=== PATIENT | male | born 1960 | race Caucasian/White ===

== ENCOUNTER 2021-08-20 19:09 | Inpatient (IN) | payer OTHER ==
[~2021-08-20] VITALS: Ht 177.8 cm; Wt 95.7 kg
[2021-08-20] MEDS ORDERED: ALBUTEROL INHALER 1 PUFF/90 MCG INHALER IH PRN ×2 (19:15→21:40)
[2021-08-20] MEDS ORDERED: normal saline 1000ML IV soln IVB ONE (19:15)
[2021-08-20] MEDS ORDERED: dexamethasone inj 8 MG in normal saline 50ml IV soln 50 ML IV ONE (19:15)
--- NOTE | 2021-08-20 19:27 | NUR ---
Pt placed in room. O2 INITIATED 3L NC. OXYGEN SATURATION AT 93%.
[2021-08-20 19:45] LABS: LYMPHOCYTES # (AUTO) 0.5 X10'3 (1.1-4.8); MONOCYTES # (AUTO) 0.4 X10'3 (0-0.9); MONOCYTES % (AUTO) 4.6 % (2-12)
[2021-08-20 19:46] LABS: BASOPHILS # (AUTO) 0.1 X10'3 (0-0.2); BASOPHILS % (AUTO) 0.6 % (0-1); EOSINOPHILS % (AUTO) 0.1 % (0-6); HEMATOCRIT 52.7 % (42.0-52.0); LYMPHOCYTES % (AUTO) 5.6 % (21-51); MEAN CORPUSCULAR HEMOGLOBIN 28.1 PG (27.0-31.0); MEAN CORPUSCULAR HGB CONC 34.3 g/dL (33.0-36.5); MEAN CORPUSCULAR VOLUME 81.8 FL (78-98); MEAN PLATELET VOLUME 8.7 FL (7.4-10.4); NEUTROPHILS # (AUTO) 7.8 X10'3 (1.8-7.7); NEUTROPHILS % (AUTO) 89.1 % (42-75); PLATELET COUNT 194 X10'3 (140-440); RED BLOOD COUNT 6.44 X10'6 (4.70-6.10); RED CELL DISTRIBUTION WIDTH 16.2 % (11.5-14.5); WHITE BLOOD COUNT 8.7 X10'3 (4.5-11.0)
[2021-08-20 19:55] LABS: D-DIMER 0.41 MG/L FEU (0-0.50)
[2021-08-20 19:58] LABS: ABG HCO3 19.1 mmol/L (22.0-26.0); ABG OXYGEN SATURATION 93.4 % (94-97); ABG PCO2 (T) 26.6 mmHg (35.0-48.0); ABG PO2 (T) 64.7 mmHg (75.0-100.0); FCOHb 0.3 % (0.0-3.9); FLOW 4 L/min; FMetHb 0.4 % (0.0-1.5); FO2Hb 92.7 % (94-97); PATIENT TEMPERATURE 37.4; TOTAL HEMOGLOBIN 18.9 G/dl (14.0-18.0)
[2021-08-20 19:59] LABS: ALANINE AMINOTRANSFERASE 41 U/L (12-78); ALBUMIN 2.5 G/DL (3.4-5.0); ALBUMIN/GLOBULIN RATIO 0.6 (1.1-1.5); ALKALINE PHOSPHATASE 55 IU/L (46-116); ANION GAP 10 (8-16); ASPARTATE AMINO TRANSFERASE 64 U/L (10-37); BILIRUBIN,TOTAL 0.6 MG/DL (0.1-1.0); BLOOD UREA NITROGEN 19 MG/DL (7-18); BUN/CREATININE RATIO 11.7 (5.4-32.0); CHLORIDE 93 MMOL/L (99-107); CREATININE 1.62 MG/DL (0.60-1.10); GLUCOSE 95 MG/DL (70-104); POTASSIUM 4.9 MMOL/L (3.5-5.1); SODIUM 127 MMOL/L (135-145); TOTAL CARBON DIOXIDE 24.2 MMOL/L (24-32); TOTAL PROTEIN 6.9 G/DL (6.4-8.2); eGFR 44 ML/MIN
[2021-08-20] MEDS ORDERED: azithromycin/NS 500mg/250ml 250 ML IV ONE (20:00)
[2021-08-20] MEDS ORDERED: REMDESIVIR INJ 200 MG in normal saline 100ml IV soln 60 ML IV ONE (20:00)
[2021-08-20] MEDS ORDERED: CefTRIAXone 2gm/D5W 50ml BAG 50 ML IV ONE (20:00)
[2021-08-20 20:13] LABS: C-REACTIVE PROTEIN 15.49 MG/DL (0.0-0.5); TROPONIN I 0.06 NG/ML (0.0-0.05)
[2021-08-20 20:18] LABS: HEMOGLOBIN 18.1 g/dl (14.0-17.9)
--- NOTE | 2021-08-20 20:18 | NUR ---
aware of pt's hemoglobin critical value
[2021-08-20] MEDS ORDERED: iohexol 350MG/ML 100ml bottle IV ONE (20:55)
[2021-08-20] MEDS ORDERED: temazepam 15mg capsule PO PRN (21:00)
--- NOTE | 2021-08-20 21:08 | NUR ---
PT TO CT
[2021-08-20] MEDS ORDERED: enoxaparin 40mg/0.4ml syringe SUBCUT SCH (21:40)
[2021-08-20] MEDS ORDERED: ondansetron/PF 4mg/2ml inj IV PRN (21:40)
[2021-08-20] MEDS ORDERED: metoclopramide 5 mg/ml inj IV PRN (21:40)
[2021-08-20] MEDS ORDERED: potassium Cl 40MEQ/1/2NS 520ml 520 ML IV PRN ×2 (21:40)
[2021-08-20] MEDS ORDERED: acetaminophen 325mg tablet PO PRN (21:40)
[2021-08-20] MEDS ORDERED: morphine 2 MG/ML inj. syringe IV PRN ×2 (21:40)
[2021-08-20] MEDS ORDERED: potassium Cl 20 mEq SR tablet PO PRN ×2 (21:40)
[2021-08-20] MEDS ORDERED: magnesium hydroxide 30ml (MOM) UD suspension PO PRN (21:40)
[2021-08-20] MEDS ORDERED: HYDROcodone/acetaminophen 10/325mg tab PO PRN (21:40)
[2021-08-20] MEDS ORDERED: magnesium 2GM in 50ml NS 50 ML IV PRN (21:40)
[2021-08-20] MEDS ORDERED: mag hydrox/Alum hydrox/simeth 30ml oral suspension PO PRN (21:40)
[2021-08-20] MEDS ORDERED: magnesium Cl slow-release 64mg tablet PO PRN (21:40)
[2021-08-20] MEDS ORDERED: HYDROcodone/acetaminophen 5mg/325mg tablet PO PRN (21:40)
[2021-08-20] MEDS ORDERED: magnesium 4gm in 100ml NS 100 ML IV PRN (21:40)
[2021-08-20] MEDS ORDERED: bisacodyl 10mg suppository rectal RC PRN (21:40)
[2021-08-20 22:09] LABS: PARTIAL THROMBOPLASTIN TIME 42 SECONDS (22-32)
[2021-08-20] MEDS: normal saline 1000ml 1,000 ML IV SCH (22:13)
--- NOTE | 2021-08-20 22:40 | NUR ---
SPOKE TO PHARMACY OVER REMDESIVIR. IV PREP AREA IS BEING CLEANED AND THEN THEY MAY PREPARE MED. THEY ARE AWARE PT IS BEING TRANSFERRED FROM ED TO FLOOR.
--- NOTE | 2021-08-20 22:44 | NUR ---
CALLED TO GIVE REPORT. FLOOR NURSE ON BREAK AND CHARGE IS BUSY WITH ANOTHER PT.
--- NOTE | 2021-08-20 23:12 | NUR ---
PT WAS DIAPHORETIC WHEN I ENTERED ROOM. HE HAD ACCIDENTALLY TAKEN HIS NC OFF. HE ALSO HAD A BOWEL MOVEMENT ON THE BED. WHEN HE TURNED AROUND HE ACCIDENTALLY RIPPED OFF HIS IV WELL. NC WAS PLACED BACK AND PT'S GENERAL APPEARANCE IMPROVED. HE IS STILL TACHYPNEIC. HIS BEDDING HAS BEEN CHANGED AND PT CLEANED UP. NEW IV LINE HAS BEEN PLACED. SPOKE TO HOSPITALIST OVER THE PHONE CONCERNING PT'S CT RESULTS.
[2021-08-20] MEDS ORDERED: heparin 10,000 units/1 ML INJ IV PRN (23:20)
[2021-08-20] MEDS ORDERED: heparin 10,000 units/1 ML INJ IV ONE (23:20)
[2021-08-21 02:00] VITALS: BP 122/84
[2021-08-21] MEDS: heparin 25,000 UNIT/250ml bag 250 ML IV SCH ×2 (02:00→13:35)
[2021-08-21] MEDS ORDERED: NO HOME MEDS (03:53)
[2021-08-21 06:00] VITALS: BP 142/80
--- NOTE | 2021-08-21 06:15 | NUR ---
Patient in room ORTHO 4012. I have received report from Maru CADENA and had the opportunity to ask questions and assume patient care.
[2021-08-21] MEDS: K and/or MAG REPLACEMENT MC SCH ×2 (08:00→19:21)
[2021-08-21] MEDS: dexamethasone inj 6 MG in normal saline 50ml IV soln 50 ML IV SCH ×2 (08:30→20:24)
[2021-08-21] MEDS: docusate sod 100mg capsule PO SCH ×2 (08:30→20:24)
[2021-08-21] MEDS: acetaminophen 325mg tablet PO PRN (08:30)
[2021-08-21] MEDS: normal saline 1000ml 1,000 ML IV SCH ×2 (08:30→16:00)
[2021-08-21] MEDS: famotidine 20mg tablet PO SCH ×2 (08:30→20:24)
[2021-08-21 08:44] LABS: EOSINOPHILS % (AUTO) 0 % (0-6); LYMPHOCYTES # (AUTO) 0.4 X10'3 (1.1-4.8); MONOCYTES # (AUTO) 0.5 X10'3 (0-0.9)
[2021-08-21 08:46] LABS: BASOPHILS % (AUTO) 0.4 % (0-1); HEMATOCRIT 54.8 % (42.0-52.0); LYMPHOCYTES % (AUTO) 6.2 % (21-51); MEAN CORPUSCULAR HEMOGLOBIN 27.3 PG (27.0-31.0); MEAN CORPUSCULAR VOLUME 82.9 FL (78-98); MEAN PLATELET VOLUME 9.2 FL (7.4-10.4); MONOCYTES % (AUTO) 7.8 % (2-12); NEUTROPHILS # (AUTO) 5.3 X10'3 (1.8-7.7); NEUTROPHILS % (AUTO) 85.6 % (42-75); PLATELET COUNT 205 X10'3 (140-440); RED CELL DISTRIBUTION WIDTH 16.5 % (11.5-14.5); WHITE BLOOD COUNT 6.2 X10'3 (4.5-11.0)
[2021-08-21 09:19] LABS: ALANINE AMINOTRANSFERASE 38 U/L (12-78); ALBUMIN 2.1 G/DL (3.4-5.0); ALBUMIN/GLOBULIN RATIO 0.5 (1.1-1.5); ALKALINE PHOSPHATASE 54 IU/L (46-116); ANION GAP 10 (8-16); ASPARTATE AMINO TRANSFERASE 57 U/L (10-37); BILIRUBIN,TOTAL 0.4 MG/DL (0.1-1.0); BLOOD UREA NITROGEN 20 MG/DL (7-18); BUN/CREATININE RATIO 13.8 (5.4-32.0); CALCIUM 7.6 MG/DL (8.5-10.1); CHLORIDE 100 MMOL/L (99-107); CREATININE 1.45 MG/DL (0.60-1.10); GLUCOSE 130 MG/DL (70-104); LACTATE DEHYDROGENASE 582 U/L (85-227); MAGNESIUM 2.6 MG/DL (1.5-2.4); PHOSPHORUS 3.4 MG/DL (2.3-4.5); POTASSIUM 4.5 MMOL/L (3.5-5.1); SODIUM 135 MMOL/L (135-145); TOTAL CARBON DIOXIDE 24.7 MMOL/L (24-32); TOTAL PROTEIN 6.5 G/DL (6.4-8.2); eGFR 50 ML/MIN
[2021-08-21 09:30] LABS: D-DIMER 0.27 MG/L FEU (0-0.50)
[2021-08-21 10:00] VITALS: BP 116/75
--- NOTE | 2021-08-21 10:00 | NUR ---
Paged Dr. Verde PAGER ID: [phone] MESSAGE: Ortho Neuro rm [id number] Rubin Morales critical lab HGB 18.0, Meg CADENA [id number]
--- NOTE | 2021-08-21 10:22 | NUR ---
paged Ammon PAGER ID: [phone] MESSAGE: Ortho Neuro rm [id number] Rubin Morales critical lab PTT 124, Held heparin per protocol and will redraw in 2 hours, Meg CADENA [phone]
[2021-08-21 11:03] LABS: ANISOCYTOSIS 1+; LARGE PLATELETS FEW; PLATELET ESTIMATE NORMAL
[2021-08-21 14:00] VITALS: BP_SYST 115; BP_SYST 116; BP_DIAS 75; BP_DIAS 77
--- NOTE | 2021-08-21 14:30 | NUR ---
patient sat up in chair for lunch for 2 hours, now positioned in bed in prone position to increase pulmonary toileting. Patient comfortable and O2 saturation 95 % on 6L nasal cannula in prone position.
--- NOTE | 2021-08-21 18:07 | NUR ---
Problems reprioritized. Patient report given, questions answered & plan of care reviewed with Maru CADENA.
[2021-08-21] MEDS: CefTRIAXone/D5W-Rocephin 1gm 50 ML IV SCH (20:31)
[2021-08-21] MEDS: REMDESIVIR INJ 100 MG in normal saline 100ml IV soln 80 ML IV SCH (22:09)
[2021-08-21 23:00] VITALS: BP 123/87
[2021-08-22 02:00] VITALS: BP 98/73
[2021-08-22 04:09] LABS: BASOPHILS # (AUTO) 0.2 X10'3 (0-0.2); BASOPHILS % (AUTO) 1.5 % (0-1); EOSINOPHILS % (AUTO) 0 % (0-6); HEMATOCRIT 56.6 % (42.0-52.0); LYMPHOCYTES # (AUTO) 0.7 X10'3 (1.1-4.8); LYMPHOCYTES % (AUTO) 5.6 % (21-51); MEAN CORPUSCULAR HEMOGLOBIN 27.4 PG (27.0-31.0); MEAN CORPUSCULAR HGB CONC 32.8 g/dL (33.0-36.5); MEAN CORPUSCULAR VOLUME 83.7 FL (78-98); MEAN PLATELET VOLUME 9.2 FL (7.4-10.4); MONOCYTES # (AUTO) 0.6 X10'3 (0-0.9); MONOCYTES % (AUTO) 5.1 % (2-12); NEUTROPHILS # (AUTO) 10.5 X10'3 (1.8-7.7); NEUTROPHILS % (AUTO) 87.8 % (42-75); PLATELET COUNT 237 X10'3 (140-440); RED BLOOD COUNT 6.76 X10'6 (4.70-6.10); RED CELL DISTRIBUTION WIDTH 16.7 % (11.5-14.5); WHITE BLOOD COUNT 11.9 X10'3 (4.5-11.0)
[2021-08-22 04:19] LABS: HEMOGLOBIN 18.5 g/dl (14.0-17.9)
[2021-08-22 04:22] LABS: D-DIMER 0.22 MG/L FEU (0-0.50)
[2021-08-22 04:27] LABS: ALANINE AMINOTRANSFERASE 34 U/L (12-78); ALBUMIN 2.1 G/DL (3.4-5.0); ALBUMIN/GLOBULIN RATIO 0.5 (1.1-1.5); ALKALINE PHOSPHATASE 56 IU/L (46-116); ANION GAP 9 (8-16); ASPARTATE AMINO TRANSFERASE 48 U/L (10-37); BILIRUBIN,TOTAL 0.4 MG/DL (0.1-1.0); BLOOD UREA NITROGEN 23 MG/DL (7-18); BUN/CREATININE RATIO 16.5 (5.4-32.0); C-REACTIVE PROTEIN 10.02 MG/DL (0.0-0.5); CALCIUM 7.7 MG/DL (8.5-10.1); CHLORIDE 103 MMOL/L (99-107); CREATININE 1.39 MG/DL (0.60-1.10); GLUCOSE 159 MG/DL (70-104); LACTATE DEHYDROGENASE 624 U/L (85-227); MAGNESIUM 2.7 MG/DL (1.5-2.4); PHOSPHORUS 2.5 MG/DL (2.3-4.5); POTASSIUM 4.3 MMOL/L (3.5-5.1); SODIUM 137 MMOL/L (135-145); TOTAL CARBON DIOXIDE 24.6 MMOL/L (24-32); TOTAL PROTEIN 6.5 G/DL (6.4-8.2); eGFR 52 ML/MIN
--- NOTE | 2021-08-22 06:30 | NUR ---
Problems reprioritized. Patient report given, questions answered & plan of care reviewed with Yuni CADENA .
[2021-08-22] MEDS: dexamethasone inj 6 MG in normal saline 50ml IV soln 50 ML IV SCH ×2 (08:00→20:17)
[2021-08-22] MEDS: docusate sod 100mg capsule PO SCH ×2 (08:00→20:00)
[2021-08-22] MEDS: K and/or MAG REPLACEMENT MC SCH ×2 (08:00→20:00)
[2021-08-22] MEDS: famotidine 20mg tablet PO SCH ×2 (08:00→21:07)
[2021-08-22] MEDS: heparin 25,000 UNIT/250ml bag 250 ML IV SCH ×2 (08:00→21:17)
[2021-08-22 10:00] VITALS: BP 111/77
[2021-08-22] MEDS: normal saline 1000ml 1,000 ML IV SCH (12:39)
[2021-08-22 18:00] VITALS: BP 130/59
--- NOTE | 2021-08-22 18:00 | NUR ---
Patient still on the same heparin drip hanged in AM, no changes made to dose. patient within therapeutic range
[2021-08-22] MEDS: azithromycin/NS 500mg/250ml 250 ML IV SCH ×2 (21:00→22:19)
[2021-08-22] MEDS: CefTRIAXone/D5W-Rocephin 1gm 50 ML IV SCH (21:07)
[2021-08-22] MEDS: lactobacillus rhamnosus 10,000 MMU CELLS/CAPSULE PO SCH (21:09)
[2021-08-22] MEDS: acetaminophen 325mg tablet PO PRN (21:18)
[2021-08-22 22:00] VITALS: BP 104/66
--- NOTE | 2021-08-22 22:45 | NUR ---
PTT therapeutic no change in heparin dosage.
[2021-08-23] MEDS: REMDESIVIR INJ 100 MG in normal saline 100ml IV soln 80 ML IV SCH ×2 (00:29→19:26)
[2021-08-23] MEDS: normal saline 1000ml 1,000 ML IV SCH ×3 (00:30→19:33)
[2021-08-23 02:00] VITALS: BP 104/68
[2021-08-23 04:02] LABS: BASOPHILS # (AUTO) 0.1 X10'3 (0-0.2); EOSINOPHILS % (AUTO) 0 % (0-6); HEMATOCRIT 48.8 % (42.0-52.0); HEMOGLOBIN 16.3 g/dl (14.0-17.9); LYMPHOCYTES # (AUTO) 0.4 X10'3 (1.1-4.8); LYMPHOCYTES % (AUTO) 2.8 % (21-51); MEAN CORPUSCULAR HEMOGLOBIN 27.3 PG (27.0-31.0); MEAN CORPUSCULAR HGB CONC 33.3 g/dL (33.0-36.5); MEAN CORPUSCULAR VOLUME 81.9 FL (78-98); MEAN PLATELET VOLUME 9.2 FL (7.4-10.4); MONOCYTES # (AUTO) 0.5 X10'3 (0-0.9); MONOCYTES % (AUTO) 3.3 % (2-12); NEUTROPHILS # (AUTO) 13.5 X10'3 (1.8-7.7); NEUTROPHILS % (AUTO) 92.9 % (42-75); PLATELET COUNT 268 X10'3 (140-440); RED BLOOD COUNT 5.95 X10'6 (4.70-6.10); RED CELL DISTRIBUTION WIDTH 16.9 % (11.5-14.5); WHITE BLOOD COUNT 14.5 X10'3 (4.5-11.0)
[2021-08-23 04:16] LABS: ALANINE AMINOTRANSFERASE 33 U/L (12-78); ALBUMIN 1.9 G/DL (3.4-5.0); ALBUMIN/GLOBULIN RATIO 0.5 (1.1-1.5); ALKALINE PHOSPHATASE 53 IU/L (46-116); ANION GAP 10 (8-16); ASPARTATE AMINO TRANSFERASE 47 U/L (10-37); BILIRUBIN,TOTAL 0.3 MG/DL (0.1-1.0); BLOOD UREA NITROGEN 18 MG/DL (7-18); BUN/CREATININE RATIO 16.1 (5.4-32.0); C-REACTIVE PROTEIN 4.18 MG/DL (0.0-0.5); CALCIUM 7.2 MG/DL (8.5-10.1); CHLORIDE 105 MMOL/L (99-107); CREATININE 1.12 MG/DL (0.60-1.10); GLUCOSE 143 MG/DL (70-104); LACTATE DEHYDROGENASE 575 U/L (85-227); MAGNESIUM 2.5 MG/DL (1.5-2.4); PHOSPHORUS 2.5 MG/DL (2.3-4.5); POTASSIUM 4.5 MMOL/L (3.5-5.1); SODIUM 138 MMOL/L (135-145); TOTAL CARBON DIOXIDE 23.5 MMOL/L (24-32); TOTAL PROTEIN 5.7 G/DL (6.4-8.2); eGFR 67 ML/MIN
[2021-08-23 04:33] LABS: D-DIMER < 0.19 MG/L FEU (0-0.50)
--- NOTE | 2021-08-23 05:59 | NUR ---
reported to days. noted pt on 5L NC and sats 97% when prone or side lying. need to titrate oxygen so he can go home and test oxygen with movement.
[2021-08-23] MEDS: dexamethasone inj 6 MG in normal saline 50ml IV soln 50 ML IV SCH ×2 (07:44→19:26)
[2021-08-23] MEDS: famotidine 20mg tablet PO SCH ×2 (07:44→19:23)
[2021-08-23] MEDS: docusate sod 100mg capsule PO SCH ×2 (07:44→19:23)
[2021-08-23] MEDS: lactobacillus rhamnosus 10,000 MMU CELLS/CAPSULE PO SCH ×2 (07:44→19:23)
[2021-08-23] MEDS: heparin 25,000 UNIT/250ml bag 250 ML IV SCH ×2 (07:59→23:37)
[2021-08-23] MEDS: K and/or MAG REPLACEMENT MC SCH ×2 (08:00→19:33)
[2021-08-23 10:00] VITALS: BP 114/64
[2021-08-23 14:00] VITALS: BP 114/64
[2021-08-23 18:00] VITALS: BP 108/67
--- NOTE | 2021-08-23 18:48 | NUR ---
Problems reprioritized. Patient report given, questions answered & plan of care reviewed with Jahaira CADENA.
--- NOTE | 2021-08-23 18:50 | NUR ---
Patient anxious and complained of chest pain; he was sleeping on his stomach and when he rolled back, found out he was sleeping on top of tele-monitor box which caused the pain. EKG obtained. Paged night time hospitalist regarding the issue, no response yet. Will continue to assess and monitor the patient. Addendum: 08/24/21 at 0029 by Sheyla Carrera RN WRONG PATIENT
[2021-08-23] MEDS: LORazepam 0.5 MG tablet PO PRN (19:23)
[2021-08-23] MEDS: CefTRIAXone/D5W-Rocephin 1gm 50 ML IV SCH (19:25)
[2021-08-23] MEDS: azithromycin/NS 500mg/250ml 250 ML IV SCH (21:49)
[2021-08-23 22:00] VITALS: BP 137/58
[2021-08-24 02:00] VITALS: BP 140/78
--- NOTE | 2021-08-24 07:30 | NUR ---
Patient in room ORTHO 4012. I have received report from Dorita CADENA and had the opportunity to ask questions and assume patient care.
[2021-08-24] MEDS: K and/or MAG REPLACEMENT MC SCH ×2 (08:00→20:00)
[2021-08-24 08:19] LABS: MEAN CORPUSCULAR HEMOGLOBIN 27.8 PG (27.0-31.0); MEAN CORPUSCULAR VOLUME 83.8 FL (78-98); MEAN PLATELET VOLUME 9.2 FL (7.4-10.4)
[2021-08-24 08:21] LABS: HEMATOCRIT 48.2 % (42.0-52.0); MEAN CORPUSCULAR HGB CONC 33.2 g/dL (33.0-36.5); PLATELET COUNT 273 X10'3 (140-440); RED BLOOD COUNT 5.76 X10'6 (4.70-6.10); RED CELL DISTRIBUTION WIDTH 16.8 % (11.5-14.5); WHITE BLOOD COUNT 13.9 X10'3 (4.5-11.0)
[2021-08-24] MEDS: dexamethasone inj 6 MG in normal saline 50ml IV soln 50 ML IV SCH ×2 (08:43→20:00)
[2021-08-24] MEDS: normal saline 1000ml 1,000 ML IV SCH ×2 (08:44→15:40)
[2021-08-24] MEDS: famotidine 20mg tablet PO SCH ×2 (08:45→20:00)
[2021-08-24] MEDS: docusate sod 100mg capsule PO SCH ×2 (08:45→20:00)
[2021-08-24] MEDS: LORazepam 0.5 MG tablet PO PRN (08:45)
[2021-08-24] MEDS: lactobacillus rhamnosus 10,000 MMU CELLS/CAPSULE PO SCH ×2 (08:45→20:00)
[2021-08-24 08:47] LABS: ANISOCYTOSIS 1+; PLATELET ESTIMATE NORMAL; POLYCHROMASIA 1+; TOTAL CELLS COUNTED 100
[2021-08-24 08:48] LABS: TOXIC GRANULATION 1+; TOXIC VACUOLATION 1+
[2021-08-24 08:50] LABS: ALANINE AMINOTRANSFERASE 37 U/L (12-78); ALBUMIN 2.1 G/DL (3.4-5.0); ALBUMIN/GLOBULIN RATIO 0.6 (1.1-1.5); ALKALINE PHOSPHATASE 62 IU/L (46-116); ANION GAP 8 (8-16); ASPARTATE AMINO TRANSFERASE 43 U/L (10-37); BILIRUBIN,TOTAL 0.5 MG/DL (0.1-1.0); BLOOD UREA NITROGEN 15 MG/DL (7-18); BUN/CREATININE RATIO 13.4 (5.4-32.0); C-REACTIVE PROTEIN 4.48 MG/DL (0.0-0.5); CALCIUM 7.6 MG/DL (8.5-10.1); CHLORIDE 104 MMOL/L (99-107); CREATININE 1.12 MG/DL (0.60-1.10); GLUCOSE 96 MG/DL (70-104); LACTATE DEHYDROGENASE 650 U/L (85-227); MAGNESIUM 2.3 MG/DL (1.5-2.4); PHOSPHORUS 2.4 MG/DL (2.3-4.5); POTASSIUM 4.6 MMOL/L (3.5-5.1); SODIUM 136 MMOL/L (135-145); TOTAL CARBON DIOXIDE 23.9 MMOL/L (24-32); TOTAL PROTEIN 5.8 G/DL (6.4-8.2); eGFR 67 ML/MIN
[2021-08-24 09:00] LABS: D-DIMER 0.34 MG/L FEU (0-0.50)
--- NOTE | 2021-08-24 09:57 | NUR ---
Initial: Pt admit DX acute respiratory failure r/t COVID-19 bilateral PNA, PE, AZ, and LADAN improving w/ hydration per DO note. PO ~50% avg regular diet partially meeting needs though refused dinner last night per EMR. LBM 08/22 w/ initial nausea on admit however currently resolved per EMR. Pt currently on 6L NC saturations in 90% per EMR. RD recommends ensure enlive TIDWM to optimize protein/kcal intake given DX; DO notified. Will continue to monitor. Rec: 1. continue regular diet; encourage PO 2. ensure enlive TIDWM; pending DO verification in EMR 3. routine bowel care 4. scaled wt this admit; subsequent weekly wts Addendum: 08/24/21 at [address] Amended: Links added.
[2021-08-24 10:00] VITALS: BP 118/73
--- NOTE | 2021-08-24 12:52 | NUR ---
PAGER ID: [phone] MESSAGE: Yuni CADENA, [id number]: patient Andrew Rubin, [id number]: Patient want " Against Medical advice (AMA) today.
[2021-08-24 14:00] VITALS: BP 135/64
[2021-08-24 18:00] VITALS: BP 171/70
[2021-08-24] MEDS: lactose-reduced food (Ensure Enlive) - 237ml bottle PO SCH (18:00)
--- NOTE | 2021-08-24 19:10 | NUR ---
Problems reprioritized. Patient report given, questions answered & plan of care reviewed with Deyanira CADENA.
[2021-08-24] MEDS: heparin 25,000 UNIT/250ml bag 250 ML IV SCH (19:34)
[2021-08-24] MEDS: CefTRIAXone/D5W-Rocephin 1gm 50 ML IV SCH (20:43)
[2021-08-24] MEDS: REMDESIVIR INJ 100 MG in normal saline 100ml IV soln 80 ML IV SCH (21:04)
[2021-08-24] MEDS: azithromycin/NS 500mg/250ml 250 ML IV SCH (21:45)
[2021-08-24 22:00] VITALS: BP 118/48
[2021-08-25 02:00] VITALS: BP 127/82
[2021-08-25] MEDS: normal saline 1000ml 1,000 ML IV SCH ×3 (02:07→22:32)
[2021-08-25 04:30] LABS: BASOPHILS % (AUTO) 0 % (0-1); EOSINOPHILS % (AUTO) 0 % (0-6); HEMATOCRIT 45.7 % (42.0-52.0); HEMOGLOBIN 15.4 g/dl (14.0-17.9); LYMPHOCYTES # (AUTO) 0.8 X10'3 (1.1-4.8); LYMPHOCYTES % (AUTO) 5.3 % (21-51); MEAN CORPUSCULAR HEMOGLOBIN 27.5 PG (27.0-31.0); MEAN CORPUSCULAR HGB CONC 33.7 g/dL (33.0-36.5); MEAN CORPUSCULAR VOLUME 81.8 FL (78-98); MEAN PLATELET VOLUME 8.7 FL (7.4-10.4); MONOCYTES # (AUTO) 0.4 X10'3 (0-0.9); MONOCYTES % (AUTO) 2.6 % (2-12); NEUTROPHILS # (AUTO) 13.5 X10'3 (1.8-7.7); NEUTROPHILS % (AUTO) 92.1 % (42-75); PLATELET COUNT 262 X10'3 (140-440); RED BLOOD COUNT 5.59 X10'6 (4.70-6.10); RED CELL DISTRIBUTION WIDTH 16.7 % (11.5-14.5); WHITE BLOOD COUNT 14.6 X10'3 (4.5-11.0)
[2021-08-25 04:45] LABS: D-DIMER 0.45 MG/L FEU (0-0.50)
[2021-08-25 04:51] LABS: ALANINE AMINOTRANSFERASE 36 U/L (12-78); ALBUMIN 1.9 G/DL (3.4-5.0); ALBUMIN/GLOBULIN RATIO 0.5 (1.1-1.5); ALKALINE PHOSPHATASE 62 IU/L (46-116); ANION GAP 8 (8-16); ASPARTATE AMINO TRANSFERASE 34 U/L (10-37); BILIRUBIN,TOTAL 0.6 MG/DL (0.1-1.0); BLOOD UREA NITROGEN 12 MG/DL (7-18); C-REACTIVE PROTEIN 5.59 MG/DL (0.0-0.5); CALCIUM 7.4 MG/DL (8.5-10.1); CHLORIDE 104 MMOL/L (99-107); GLUCOSE 153 MG/DL (70-104); LACTATE DEHYDROGENASE 583 U/L (85-227); MAGNESIUM 2.1 MG/DL (1.5-2.4); PHOSPHORUS 2.8 MG/DL (2.3-4.5); POTASSIUM 4.5 MMOL/L (3.5-5.1); SODIUM 135 MMOL/L (135-145); TOTAL CARBON DIOXIDE 23.5 MMOL/L (24-32); TOTAL PROTEIN 5.6 G/DL (6.4-8.2); eGFR 76 ML/MIN
[2021-08-25 06:00] VITALS: BP 118/70
--- NOTE | 2021-08-25 06:50 | NUR ---
Patient in room ORTHO 4012. I have received report from TAMMI BAY and had the opportunity to ask questions and assume patient care.
--- NOTE | 2021-08-25 06:54 | NUR ---
ASSUMED CARE OF PATIENT WITH VERBAL REPORT FROM EKTA, TRAVELER RN. PATIENT RESTING, REFUSED MOST OF DINNER. THERAPEUTIC ON LAB DRAW AT 1930. NO CHANGES TO RATE BUT DID NEED TO PUT UP ANOTHER BAG OF HEPARIN. NOTED NO OTHER RECORD OF HEPARIN BEING ADM SINCE NIGHT BEFORE AND RATE REPORTED TO ME HAD BEEN INCREASED FROM 12 TO 1300 UNITS., YET WHEN I HUNG THE BAG PRIOR ADMINISTRATIONS WERE SHOWING 12OO UNITS RATE. REPORT GIVEN TO ZAIDA, LATEST LAB DRAW THERAPEUTIC AND RATE REMAINING AT 1300 UNITS.
[2021-08-25] MEDS: lactose-reduced food (Ensure Enlive) - 237ml bottle PO SCH ×4 (08:00→18:33)
[2021-08-25] MEDS: K and/or MAG REPLACEMENT MC SCH ×2 (08:00→20:00)
[2021-08-25] MEDS: famotidine 20mg tablet PO SCH ×2 (08:10→22:35)
[2021-08-25] MEDS: dexamethasone inj 6 MG in normal saline 50ml IV soln 50 ML IV SCH ×2 (08:10→22:32)
[2021-08-25] MEDS: docusate sod 100mg capsule PO SCH ×2 (08:10→22:36)
[2021-08-25] MEDS: lactobacillus rhamnosus 10,000 MMU CELLS/CAPSULE PO SCH ×2 (08:11→22:36)
[2021-08-25 08:17] LABS: PLATELET ESTIMATE NORMAL; TOTAL CELLS COUNTED 100
[2021-08-25 08:18] LABS: ANISOCYTOSIS 1+; BURR CELLS 1+; POLYCHROMASIA 1+
[2021-08-25 10:00] VITALS: BP 114/52
--- NOTE | 2021-08-25 10:58 | NUR ---
DR. SHOEMAKER IN TO SEE PATIENT.
[2021-08-25] MEDS: apixaban 5mg tablet PO SCH ×2 (11:31→22:36)
[2021-08-25] MEDS: LORazepam 0.5 MG tablet PO PRN (11:35)
[2021-08-25 15:18] VITALS: BP 112/69
[2021-08-25 18:00] VITALS: BP 136/90
--- NOTE | 2021-08-25 18:30 | NUR ---
Problems reprioritized. Patient report given, questions answered & plan of care reviewed with TAMMI BAY.
[2021-08-25 22:00] VITALS: BP 150/59
[2021-08-25] MEDS: CefTRIAXone/D5W-Rocephin 1gm 50 ML IV SCH (22:47)
[2021-08-25] MEDS: azithromycin/NS 500mg/250ml 250 ML IV SCH (23:27)
[2021-08-26 02:00] VITALS: BP 121/47
[2021-08-26] MEDS: normal saline 1000ml 1,000 ML IV SCH (06:55)
[2021-08-26 07:00] VITALS: BP 126/80
--- NOTE | 2021-08-26 07:04 | NUR ---
VERBAL REPORT GIVEN TO EARLY SHIFT RN
[2021-08-26] MEDS: lactose-reduced food (Ensure Enlive) - 237ml bottle PO SCH ×2 (08:00→13:15)
[2021-08-26] MEDS: K and/or MAG REPLACEMENT MC SCH (08:00)
[2021-08-26] MEDS: docusate sod 100mg capsule PO SCH (08:57)
[2021-08-26] MEDS: dexamethasone inj 6 MG in normal saline 50ml IV soln 50 ML IV SCH (08:57)
[2021-08-26] MEDS: lactobacillus rhamnosus 10,000 MMU CELLS/CAPSULE PO SCH (08:57)
[2021-08-26] MEDS: apixaban 5mg tablet PO SCH (08:57)
[2021-08-26] MEDS: famotidine 20mg tablet PO SCH (08:57)
[2021-08-26 09:16] LABS: D-DIMER 3.21 MG/L FEU (0-0.50)
[2021-08-26 09:34] LABS: C-REACTIVE PROTEIN 2.25 MG/DL (0.0-0.5)
[2021-08-26 15:00] VITALS: BP 151/74
--- NOTE | 2021-08-26 15:12 | NUR ---
PATIENT GIVEN AN INCENTIVE SPIROMETER AND ADVISED TO USE IT 10X PER HOUR, IN ADDITION TO PRONING MUCH POSSIBLE. HE VERBALIZED UNDERSTANDING, RETURNED THE DEMONSTRATION OF THE IS. HE IS MOTIVATED TO GET BETTER SO HE CAN LEAVE THE HOSPITAL.
[2021-08-26] MEDS ORDERED: methylPREDNISolone sod succ 125mg/2ml vial IV SCH (16:00)
--- NOTE | 2021-08-26 16:02 | NUR ---
Answered patients call light, he said that he is going to leave AMA, his ride is apparently already on their way here to pick him up. He is fully aware that this AMA could be fatal considering his current oxygen demand, this has been explained numerous times by myself, the doctors, and the cash applications analyst. Patient verbalizes understanding and says he is NOT going to stay another night here. Advised patient that if he is feeling SOB, or worse he can always come back to the ER.
--- NOTE | 2021-08-26 16:35 | NUR ---
Patient wheeled down to the front. He signed his AMA paperwork. He verbalized understanding of the risks he's taking leaving AMA. IV's x2 removed, monitor technician removed. All belongings taken from room. IS sent with patient and i encouraged him to continue using it, proning himself, etc. RT was in the room educating him on exercises to help at home. Patient was advised to return to the ER for any new or worsening symptoms.
--- NOTE | 2021-08-26 16:41 | NUR ---
PAGER ID: [phone] MESSAGE: [id number] Lars Morales: MOO...patient left AMA. thanks! [phone]
[2021-08-26] MEDS ORDERED: enoxaparin 100mg/ml syringe SUBCUT SCH (20:00)
[2021-09-01] MEDS ORDERED: apixaban 5mg tablet PO SCH (20:00)
== END 2021-08-26 16:40 | disposition left against medical advice (07) | DRG 177 ==
LOC: ER 19:10 → ED HOLD 21:48 → ORTHO 4S 23:32
PROVIDERS: ADMIT Family Medicine; ATTEND Family Medicine
PROC: XW033E5 Introduction of Remdesivir Anti-infective into Peripheral Vein, Percutaneous Approach, New Technology Group 5 (ICD-10-PCS; principal; 2021-08-20)
PROC: B32T1ZZ Computerized Tomography (CT Scan) of Left Pulmonary Artery using Low Osmolar Contrast (ICD-10-PCS; 2021-08-20)
PROC: B3201ZZ Computerized Tomography (CT Scan) of Thoracic Aorta using Low Osmolar Contrast (ICD-10-PCS; 2021-08-20)
PROC: B32S1ZZ Computerized Tomography (CT Scan) of Right Pulmonary Artery using Low Osmolar Contrast (ICD-10-PCS; 2021-08-20)
PROC: 5A0935A Assistance with Respiratory Ventilation, Less than 24 Consecutive Hours, High Flow/Velocity Cannula (ICD-10-PCS; 2021-08-25)
DX: U07.1 COVID-19 (principal); I21.A1 Myocardial infarction type 2; I26.99 Other pulmonary embolism without acute cor pulmonale; J12.82 Pneumonia due to coronavirus disease 2019; J96.01 Acute respiratory failure with hypoxia; N17.0 Acute kidney failure with tubular necrosis; E87.1 Hypo-osmolality and hyponatremia; Z53.29 Procedure and treatment not carried out because of patient's decision for other reasons; E88.09 Other disorders of plasma-protein metabolism, not elsewhere classified
CPT/HCPCS: 36415; 36600; 71045; 71275; 80053; 82803; 83605; 83615; 83735; 83880; 84100; 84145; 84484; 85007; 85008; 85018; 85025; 85379; 85610; 85730; 86140; 87040; 87081; 87635; 93005; 94760; 96365; 96368; 97110; 97116; 97161; 97530; 99285; C9803; G0378; J0456; J0696; J1100; J1644; J1650; J2930; J7030; Q9967

== ENCOUNTER 2024-05-18 19:33 | Emergency (ER) | payer MEDICAID, OTHER ==
[~2024-05-18] VITALS: Ht 177.8 cm; Wt 99.4 kg
[~2024-05-18 19:33] MED LIST: NO HOME MEDS
[2024-05-18 21:17] LABS: BASOPHILS # (AUTO) 0.1 X10'3 (0-0.2); BASOPHILS % (AUTO) 0.7 % (0-1); EOSINOPHILS # (AUTO) 0.7 X10'3 (0-0.9); EOSINOPHILS % (AUTO) 5.8 % (0-6); HEMATOCRIT 46.8 % (42.0-52.0); HEMOGLOBIN 15.3 g/dl (14.0-17.9); LYMPHOCYTES # (AUTO) 2.2 X10'3 (1.1-4.8); LYMPHOCYTES % (AUTO) 19.4 % (21-51); MEAN CORPUSCULAR HGB CONC 32.7 g/dL (33.0-36.5); MEAN CORPUSCULAR VOLUME 88.5 FL (78-98); MEAN PLATELET VOLUME 9.3 FL (7.4-10.4); MONOCYTES # (AUTO) 1.1 X10'3 (0-0.9); MONOCYTES % (AUTO) 9.9 % (2-12); NEUTROPHILS # (AUTO) 7.4 X10'3 (1.8-7.7); NEUTROPHILS % (AUTO) 64.2 % (42-75); PLATELET COUNT 268 X10'3 (140-440); RED BLOOD COUNT 5.28 X10'6 (4.70-6.10); RED CELL DISTRIBUTION WIDTH 14.1 % (11.5-14.5); WHITE BLOOD COUNT 11.5 X10'3 (4.5-11.0)
[2024-05-18 21:27] LABS: APTT 29 SECONDS (22-32); PROTHROMBIN TIME 11.2 SECONDS (9.0-12.0)
[2024-05-18 21:31] LABS: ALANINE AMINOTRANSFERASE 36 U/L (12-78); ALBUMIN/GLOBULIN RATIO 0.8 (1.1-1.5); ALKALINE PHOSPHATASE 76 IU/L (46-116); ANION GAP 12 (8-16); ASPARTATE AMINO TRANSFERASE 15 U/L (10-37); BILIRUBIN,TOTAL 0.3 MG/DL (0.1-1.0); BLOOD UREA NITROGEN 16 MG/DL (7-18); BUN/CREATININE RATIO 13.2 (10.0-20.0); CALCIUM 8.7 MG/DL (8.5-10.1); CHLORIDE 104 MMOL/L (99-107); CREATININE 1.21 MG/DL (0.60-1.10); GLUCOSE 124 MG/DL (70-104); POTASSIUM 3.5 MMOL/L (3.5-5.1); SODIUM 141 MMOL/L (135-145); TOTAL CARBON DIOXIDE 25.3 MMOL/L (24-32); TOTAL PROTEIN 6.8 G/DL (6.4-8.2); eCRCL 65 ML/MIN; eGFR 61 ML/MIN
[2024-05-18 21:39] LABS: C-REACTIVE PROTEIN 1.79 MG/DL (0.0-0.5); PRO BRAIN NATRIURETIC PEPTIDE 141 PG/ML (0-125)
[2024-05-18] MEDS ORDERED: CLIN300C54 PO (22:03)
[2024-05-18 22:33] LABS: ALBUMIN 2.7 G/DL (3.4-5.0); ANION GAP 11 (8-16); BLOOD UREA NITROGEN 16 MG/DL (7-18); BUN/CREATININE RATIO 16.3 (10.0-20.0); CALCIUM 8.7 MG/DL (8.5-10.1); CHLORIDE 104 MMOL/L (99-107); CREATININE 0.98 MG/DL (0.60-1.10); GLUCOSE 120 MG/DL (70-104); POTASSIUM 4.5 MMOL/L (3.5-5.1); SODIUM 137 MMOL/L (135-145); TOTAL CARBON DIOXIDE 21.8 MMOL/L (24-32); eCRCL 80 ML/MIN; eGFR 77 ML/MIN
[2024-05-18] MEDS: clindamycin 300mg/D5W 50mL 50 ML IV STA (22:55)
[2024-05-18] MEDS: CefTRIAXone/D5W-Rocephin 1gm 50 ML IV ONE (23:18)
[2024-05-18 23:39] VITALS: BP 158/110; PULSE 84; RESP 16; TEMP 98.4; O2SAT 91
== END 2024-05-18 23:41 | disposition home or self-care (01) ==
LOC: ER 19:33
DX: L03.116 Cellulitis of left lower limb (principal); M79.652 Pain in left thigh; Z72.89 Other problems related to lifestyle
CPT/HCPCS: 36415; 73700; 80048; 80053; 83605; 83880; 84145; 85025; 85610; 85651; 85730; 86140; 87040; 93971; 96365; 96367; 99285; J0696; J3490